=== PATIENT | male | born 1980 | race Caucasian/White ===

== ENCOUNTER 2019-05-29 00:20 | Emergency (ER) | payer OTHER ==
--- NOTE | 2019-05-29 00:28 | PDOC ---
History of Present Illness - General Chief Complaint: Eye Problem Stated Complaint: LT EYE PROBLEM Time Seen by Provider: 05/29/19 00:21 History Source: Patient Exam Limitations: No Limitations - History of Present Illness Initial Comments: 05/29/19 00:56 38y M no pmhx presents with L eye irritation. Pt states he was doing well this morning, around 10am, he noticed some mild irritation and discharge to his eye that gradually worsened throughout the day. Around 6pm, he noticied blurry vision on his L eye, he went to the bathroom and was uanble to find his contact. he noticed blurry vision but corrects normally with his glasses. The patient denies any fever, chills, significant eye pain, headache, nausea, vomiting, recent URI symptoms. ROS Constitutional - no reported Fever, Chills, HEENT: +L eye redness/dischage no reported vision changes, sore throat Respiratory: no reported cough, sob, Cardiac: no reported chest pain, leg swelling Abd/GI: no reported abd pain, nausea, vomiting, Physical exam GENERAL: The patient is awake, alert, and fully oriented, Nontoxic - in no acute distress. HEAD: Normocephalic, atraumatic. EYES: extraocular movements intact, conjunctival erythema on L eye with yellowsih/green crusting. No corneal uptake with flourisciene staining ENT: Normal voice, Moist mucous membranes. NECK: Normal range of motion, supple suspect ocnjuncitivits no signs of fb nor flourisciene uptake to suggest ulceration/keratitis will have pt dc his contacts will start pt on oflaxacin will have pt fu with ophtho return precautions were dsicussed I discussed the physical exam findings, ancillary test results and final diagnoses with the patient. I answered all of the patient's questions. The patient was satisfied with the care received and felt comfortable with the discharge plan and treatment plan. The patient will call their primary care physician within 24 hours to arrange follow-up and will return to the Emergency Department with any new, persistent or worsening symptoms. Past History - Past Medical History Allergies/Adverse Reactions: Allergies Allergy/AdvReac Type Severity Reaction Status Date / Time No Known Allergies Allergy Unverified 05/29/19 00:21 Home Medications: Ambulatory Orders Ofloxacin [Ocuflox] 1 - 2 drop OS Q6H #5 ml 05/29/19 Discharge - Discharge Information Problems reviewed: Yes Clinical Impression/Diagnosis: Conjunctivitis Qualifiers: Conjunctivitis type: acute Acute conjunctivitis type: unspecified Laterality: left Qualified Code(s): H10.32 - Unspecified acute conjunctivitis, left eye Condition: Stable Disposition: HOME - Admission No - Additional Discharge Information Prescriptions: Ofloxacin [Ocuflox] 1 - 2 drop OS Q6H #5 ml - Follow up/Referral Referrals: Chad Garcias MD [Staff Physician] - - Patient Discharge Instructions Patient Printed Discharge Instructions: DI for Conjunctivitis Additional Instructions: Return to the emergency department immediately with ANY new, persistent or worsening symptoms Including changes in your vision, fevers, worsening redness and swelling or any other concerns. Use the antibiotic eyedrops as prescribed. Do not wear your contact lenses until atleast 48 hrs after the redness and discharge have ceased You MUST call and follow up with your eye doctor in 3-4 days for further evaluation of your symptoms. Results were discussed with you. Please make sure your doctor reviews the results of your emergency evaluation. Your Emergency Department visit is not complete without a follow up with your doctor. Print Language: TRINIDADIAN - Post Discharge Activity
[2019-05-29 00:29] VITALS: BP 117/80; PULSE 64; TEMP 98.2; BMI 30.5
[2019-05-29] MEDS ORDERED: FLUORESCEIN NA 1 EA STRIP ONE (00:29)
[2019-05-29] MEDS ORDERED: TETRACAINE 0.5% OPHTH SOLN 2 ML BOTTLE ONE (00:29)
== END 2019-05-29 01:04 | disposition home or self-care (01) ==
LOC: FER 00:20
DX: H10.32 Unspecified acute conjunctivitis, left eye (principal)
CPT/HCPCS: 99281-25